=== PATIENT | female | born 1975 | race Caucasian/White ===

== ENCOUNTER 2019-11-26 10:44 | Emergency (ER) | payer OTHER, SELFPAY ==
[2019-11-26 10:55] VITALS: BP 122/80; PULSE 74; RESP 18; TEMP 36.8; O2SAT 95; BMI 41.5
--- NOTE | 2019-11-26 11:02 | XRR_ITS ---
PROCEDURE INFORMATION: Exam: XR Chest, 1 View Exam date and time: 11/26/2019 11:46 AM Age: 44 years old Clinical indication: Cough; Patient HX: Chest pain, high blood pressure this am; Additional info: Cough/congestion TECHNIQUE: Imaging protocol: XR of the chest Views: 1 view. COMPARISON: CR Chest 2 views* [id number] 02/19/2018 10:08 AM FINDINGS: Lungs: Unremarkable. No consolidation. Pleural space: Unremarkable. No pleural effusion. No pneumothorax. Heart/Mediastinum: Unremarkable. No cardiomegaly. Bones/joints: No acute findings. XR/XR chest 1V portable [id number] IMPRESSION: No acute findings.
--- NOTE | 2019-11-26 11:02 | ECG_ITS ---
Measurements Intervals [place] Rate: 76 P: 13 OH: 150 QRS: -2 QRSD: 77 T: 1 QT: 382 QTc: 430 SINUS RHYTHM MINIMAL VOLTAGE CRITERIA FOR LVH, CONSIDER NORMAL VARIANT [MEETS CRITERIA IN ONE OF: R(aVL), S(V1), R(V5), R(V5/V6)+S(V1)] Compared to ECG 02/19/2018 09:14:17 Short [place] interval no longer present Electronically Signed On 11-26-2019 20:54:40 FACILITIES DIRECTOR by Jenny Kirby M.D. [id number]
--- NOTE | 2019-11-26 11:07 | PC.NURSE ---
Patient reports that she has been having severe chest pain. Patient states this pain has been going on for about a month. Patient reports that it started when she started taking metoprolol. Patient states that the pain is constant but it comes and goes as well. Patient reports that the pain feels like needles. Patient states that the pain never goes away but it gets worse at times where she then gets short of breath and nauseous. Patient then reports that the pain radiates into her spine.
[2019-11-26 11:11] VITALS: BP 118/81; PULSE 72; RESP 19; O2SAT 95
--- NOTE | 2019-11-26 11:19 | ED_ITS ---
Entered by Niharika Rush, acting as scribe for Sudha Alfonso MD Nov 26, 2019 10:44 HPI - Chest Pain General: Chief Complaint: Chest Pain Stated Complaint: Chest pains Time Seen by Provider: 11/26/19 11:19 Source: patient Mode of arrival: ambulatory Limitations: no limitations History of Present Illness: HPI narrative: 44 yo Female presents to ED with complaint of chest pain. Pt states that she wasn't feeling well last night. Pt states that she feels like she has pins and needles or razor blades in her chest. Pt states that the last few nights she has been waking up with the feeling of someone is running a ball of needles up and down her spine. Pt states that she has pressure in her jaw. Pt's states that the patient had an episode where she had a syncopal episode. Pt's states that the patient was given an Alprazolam and took a nap. Pt states that during the episode she felt like her left side just couldn't hold up anymore and then she was in the floor. Pt's states that the patient started having another episode of the pins and needles feeling and checked her blood pressure at school and it was 167/102. Pt states that she had these episodes before and she started taking Metoprolol, which made the episodes better. Pt states that she is now having increased episodes. Pt states that she has been under a lot of stress recently too. Pt states that she was put on the Metoprolol to get her heart rate down because it was chronically up when she was on a monitor. Pt states that she is on Methyltrexate due to an autoimmune response and RA diagnosis from a tick bite. Pt states that she feels like she can't breathe deep enough all of the time but she has been having increased shortness of breath during these episodes. Pt states that she has also been having issues with her memory lately. Pt's states that the patient has been having a hard time getting her words out lately. complaint: chest pain and chest discomfort Onset (ago): week(s) Timing of current episode: episodic, increasing and still present Prior episodes: Yes Onset: during exertion and awoke with symptoms Pain location: right chest Pain radiation: back and jaw/teeth Severity: similar to previous episodes Pain scale (0-10): 4 Quality: heaviness and other (pins and needles) Relieving factors: nothing Exacerbating factors: exertion and stress Associated symptoms: Reports dyspnea and nausea; Deny abdominal pain, diaphoresis, fever(s) or vomiting Treatment prior to arrival: none Review of Systems Const: Denies: fever, chills, change in appetite, night sweats or diaphoresis Eyes: Denies: change in vision ENMT: Denies: throat pain or ear pain Card: Reports: chest pain (pins and needles feeling); Denies: swelling of feet/ankles, shortness of breath on exertion or shortness of breath when lying down Resp: Reports: shortness of breath; Denies: productive cough GI: Reports: nausea; Denies: abdominal pain, vomiting, diarrhea or constipation : Denies: flank pain or difficulty urinating Musc: Denies: back pain Skin/Breast: Denies: rash Neuro: Denies: headache, numbness in extremities or weakness in extremities Psych: Denies: depression Endo: Denies: excessive thirst Rian/Lymph: Denies: easy bruising PFSH ED PFSH: Statuses (acute, chronic, etc) shown below reflect problem list status as previously entered and may not be historically accurate Medical History (Updated 11/26/19 @ 14:44 by Sudha Alfonso MD) Anxiety Rheumatoid arthritis Stress reaction Surgical History (Updated 11/26/19 @ 12:21 by Niharika Rush) History of Social History Smoking and tobacco status: never smoked Female Reproductive History: Date of last menstrual period: 11/19/19 Physical Exam Const: COMMON NORMALS: no apparent distress, oriented x3 and alert GENERAL APPEARANCE: cooperative and well developed; not in distress and not diaphoretic ORIENTATION/CONSCIOUSNESS: Yes awake, Yes oriented to person, Yes oriented to place and Yes oriented to time HENMT: COMMON NORMALS: normocephalic, head/scalp atraumatic, external ears normal, external nose normal and moist oral mucous membranes HEAD & SCALP: normocephalic and atraumatic FACE & SINUS: normal facial exam; no facial tenderness NOSE: external nose normal EXTERNAL EAR: Yes external ears normal MOUTH: oral and palatal mucosa normal, lip normal and tongue normal TEETH & GINGIVA: no abnormal tooth and associated gingiva THROAT: posterior oropharynx normal and uvula midline Eye: COMMON NORMALS: PERRL and EOMs intact bilaterally PUPIL: Yes PERRL Neck/C-Spine: COMMON NORMALS: full ROM, supple and no JVD GENERAL: Yes normal visual inspection and Yes trachea midline CERVICAL SPINE: No cervical spine tenderness Lymph: LYMPHATIC: no lymphadenopathy noted Chest: COMMONS NORMALS: inspection of chest normal Resp: COMMON NORMALS: normal respiratory effort, no use of accessory muscles and clear to auscultation bilaterally EFFORT & INSPECTION: Yes able to speak in complete sentences and Yes symmetric chest movement AUSCULTATION: clear to auscultation bilaterally Cardio: COMMON NORMALS: no JVD, regular rate, regular rhythm, no gallops, no murmurs and peripheral pulses 2+ throughout RATE: regular rate RHYTHM: regular rhythm PERIPHERAL PULSES: pulses 2+ throughout GI: COMMON NORMALS: normal to inspection, nondistended, normoactive bowel sounds, soft to palpation and non-tender PALPATION: Yes soft Back/Pelvis: COMMON NORMALS: thoracic and lumbar spine normal to inspection and thoraco-lumbar ROM normal Extremity: COMMON NORMALS: normal to inspection, full ROM and normal capillary refill Neuro: COMMON NORMALS: oriented x3, CN's II-XII intact bilaterally, moves all extremities, no focal motor deficits and no sensory deficits noted SENSORIUM/ORIENTATION: Yes alert, Yes oriented to person, Yes oriented to place and Yes oriented to time Psych: COMMON NORMALS: mental status grossly normal, thought process normal, cooperative, affect normal, speech normal and activity/motor behavior normal SPEECH: Yes normal speech THOUGHT PROCESS: normal thought process Skin: COMMON NORMALS: no rashes or lesions noted and skin turgor normal GENERAL SKIN EXAM: no rashes or lesions noted and turgor normal Course Reevaluation(s): Reevaluation #1: Patient feeling better - so far labs and CT neg. Her prior work up for chest pain have not shown anything abnormal. Vital Signs: Vital signs: Vital Signs Temperature 98.3 F 11/26/19 10:55 Pulse Rate 73 11/26/19 15:04 Respiratory Rate 21 H 11/26/19 15:04 Blood Pressure 118/81 11/26/19 15:04 Pulse Oximetry 92 11/26/19 15:04 MDM - Chest Pain MDM Narrative: Medical decision making narrative: Patient with complaints of very atypical chest pain and back pain - intermittently for some time, but worse in the past two days. She reports a syncopal episode last night. Her work up in the ED including CT head, CT chest, labs, EKG, CXR - all neg. Her ESR, CRP were mildly elevated which is not unusual given her RA. I think there is an element of anxiety to the situation - as she reports that she had a stressful day yesterday prior to the syncope. Lab Data: Labs: Lab Results 11/26/19 11/26/19 11/26/19 Range/Units 11:50 11:50 11:50 WBC 7.2 (4.0-10.0) 10^3/ uL RBC 3.94 L (4.1-5.3) 10^6/u L Hgb 12.4 (11.5-15.3) g/dL Hct 37.7 (37.0-47.0) % MCV 95.7 (81-99) fL MCH 31.5 (28.0-34.0) pg MCHC 32.9 (30.0-36.0) g/dL RDW 14.5 (12.1-15.1) % Plt Count 270 (130-400) 10^3/c mm MPV 8.9 (7.4-10.4) fL Neut % (Auto) 57.9 % Lymph % (Auto) 33.2 % Taney % (Auto) 6.5 % Eos % (Auto) 1.7 % Baso % (Auto) 0.6 % Neut # (Auto) 4.2 (1.8-7.7) 10^3/u L Lymph # (Auto) 2.4 (0.8-4.8) 10^3/u L Taney # (Auto) 0.5 (0.2-0.9) 10^3/u L Eos # (Auto) 0.1 (0.0-0.8) 10^3/u L Baso # (Auto) 0.0 (0.0-0.1) 10^3/u L Nucleated RBC % (a uto) 0 % Nucleated RBCs # 0.0 /100WBC ESR (0-15) mm/hr Sodium 138 (136-145) mmol/L Potassium 4.1 (3.5-5.1) mmol/L Chloride 103 (98-107) mmol/L Carbon Dioxide 23 (22-29) mmol/L Anion Gap 16.1 (5-19) BUN 13 (6-20) mg/dL Creatinine 0.7 (0.5-0.9) mg/dL GFR Calculation 91.3 (90-130) mL/min Glucose 86 (65-115) mg/dL Calcium 9.8 (8.5-10.5) mg/dL Total Bilirubin 0.4 (0.15-1.2) mg/dL AST 19 (0-32) U/L ALT 21 (0-33) U/L Alkaline Phosphata se 82 (35-105) IU/L Troponin T Baselin e 11 H (0-10) ng/mL Troponin T 120 Min burns paiute (0-10) ng/mL Delta Troponin T (0-10) ABS# C-Reactive Protein (0.0-4.9) mg/L Total Protein 7.0 (6.6-8.7) g/dL Albumin 4.7 (3.5-5.2) g/dL Globulin 2.3 (1.3-4.6) g/dL HCG, Qual (Negative) Urine Color (Yellow) Urine Appearance (CLEAR) Urine pH (5-7) Ur Specific Gravit y (1.005-1.030) Urine Protein (Negative) Urine Glucose (UA) (Normal) Urine Ketones (Negative) Urine Occult Blood (Negative) Urine Nitrate (Negative) Urine Bilirubin (NEGATIVE) Urine Urobilinogen (Negative) mg/dL Ur Leukocyte Christin ase (Negative) 11/26/19 11/26/19 11/26/19 Range/Units 11:50 11:50 11:50 WBC (4.0-10.0) 10^3/ uL RBC (4.1-5.3) 10^6/u L Hgb (11.5-15.3) g/dL Hct (37.0-47.0) % MCV (81-99) fL MCH (28.0-34.0) pg MCHC (30.0-36.0) g/dL RDW (12.1-15.1) % Plt Count (130-400) 10^3/c mm MPV (7.4-10.4) fL Neut % (Auto) % Lymph % (Auto) % Taney % (Auto) % Eos % (Auto) % Baso % (Auto) % Neut # (Auto) (1.8-7.7) 10^3/u L Lymph # (Auto) (0.8-4.8) 10^3/u L Taney # (Auto) (0.2-0.9) 10^3/u L Eos # (Auto) (0.0-0.8) 10^3/u L Baso # (Auto) (0.0-0.1) 10^3/u L Nucleated RBC % (a uto) % Nucleated RBCs # /100WBC ESR 19 H (0-15) mm/hr Sodium (136-145) mmol/L Potassium (3.5-5.1) mmol/L Chloride (98-107) mmol/L Carbon Dioxide (22-29) mmol/L Anion Gap (5-19) BUN (6-20) mg/dL Creatinine (0.5-0.9) mg/dL GFR Calculation (90-130) mL/min Glucose (65-115) mg/dL Calcium (8.5-10.5) mg/dL Total Bilirubin (0.15-1.2) mg/dL AST (0-32) U/L ALT (0-33) U/L Alkaline Phosphata se (35-105) IU/L Troponin T Baselin e (0-10) ng/mL Troponin T 120 Min burns paiute (0-10) ng/mL Delta Troponin T (0-10) ABS# C-Reactive Protein 7.1 H (0.0-4.9) mg/L Total Protein (6.6-8.7) g/dL Albumin (3.5-5.2) g/dL Globulin (1.3-4.6) g/dL HCG, Qual Negative (Negative) Urine Color (Yellow) Urine Appearance (CLEAR) Urine pH (5-7) Ur Specific Gravit y (1.005-1.030) Urine Protein (Negative) Urine Glucose (UA) (Normal) Urine Ketones (Negative) Urine Occult Blood (Negative) Urine Nitrate (Negative) Urine Bilirubin (NEGATIVE) Urine Urobilinogen (Negative) mg/dL Ur Leukocyte Christin ase (Negative) 02/12/20 02/12/20 Range/Units 14:02 14:22 WBC (4.0-10.0) 10^3/ uL RBC (4.1-5.3) 10^6/u L Hgb (11.5-15.3) g/dL Hct (37.0-47.0) % MCV (81-99) fL MCH (28.0-34.0) pg MCHC (30.0-36.0) g/dL RDW (12.1-15.1) % Plt Count (130-400) 10^3/c mm MPV (7.4-10.4) fL Neut % (Auto) % Lymph % (Auto) % Taney % (Auto) % Eos % (Auto) % Baso % (Auto) % Neut # (Auto) (1.8-7.7) 10^3/u L Lymph # (Auto) (0.8-4.8) 10^3/u L Taney # (Auto) (0.2-0.9) 10^3/u L Eos # (Auto) (0.0-0.8) 10^3/u L Baso # (Auto) (0.0-0.1) 10^3/u L Nucleated RBC % (a uto) % Nucleated RBCs # /100WBC ESR (0-15) mm/hr Sodium (136-145) mmol/L Potassium (3.5-5.1) mmol/L Chloride (98-107) mmol/L Carbon Dioxide (22-29) mmol/L Anion Gap (5-19) BUN (6-20) mg/dL Creatinine (0.5-0.9) mg/dL GFR Calculation (90-130) mL/min Glucose (65-115) mg/dL Calcium (8.5-10.5) mg/dL Total Bilirubin (0.15-1.2) mg/dL AST (0-32) U/L ALT (0-33) U/L Alkaline Phosphata se (35-105) IU/L Troponin T Baselin e (0-10) ng/mL Troponin T 120 Min burns paiute 11.26 H (0-10) ng/mL Delta Troponin T 0.26 (0-10) ABS# C-Reactive Protein (0.0-4.9) mg/L Total Protein (6.6-8.7) g/dL Albumin (3.5-5.2) g/dL Globulin (1.3-4.6) g/dL HCG, Qual (Negative) Urine Color Yellow (Yellow) Urine Appearance Clear (CLEAR) Urine pH 5 (5-7) Ur Specific Gravit y 1.010 (1.005-1.030) Urine Protein Neg (Negative) Urine Glucose (UA) Norm (Normal) Urine Ketones Negative (Negative) Urine Occult Blood Neg (Negative) Urine Nitrate Negative (Negative) Urine Bilirubin Neg (NEGATIVE) Urine Urobilinogen Norm (Negative) mg/dL Ur Leukocyte Christin ase Negative (Negative) Imaging Data^: CT Head: Radiologist's impression: [place] [address] CT Scan Report Signed Patient: Estefani Sherman #: [id number] : 1975Acct#:[id number] Age/Sex: 44 / FADM Date: 11/26/19 Loc: ERRoom/Bed: Attending Dr: Ordering Provider/Ordering MD: Sudha Alfonso MD Date of Service: 11/26/19 Procedure(s): CT head wo con* [id number] Accession Number(s): [id number] Report Number: [id number] WS: [id number] CT HEAD NONCONTRAST HISTORY: syncope, left sided weakness TECHNIQUE: Contiguous axial imaging performed through the brain in 2.5 mm camelia ging. Bone and soft tissue windows. Sagittal and coronal reformats reviewed. All CT scans at [facility] use at least one of these dose optimization techniques: automated exposure control; mA and/or kV adjustment per patient size (includes targeted exams where dose is matched to clinical indication); or iterative reconstruction. DLP: 800.48 mGy-cm. COMPARISON: None available. No acute intracranial hemorrhage, midline shift or mass effect. No atrophy or prior infarcts or herniation. Ventricles: Normal size with no hydrocephalus. Paranasal sinuses: As visualized are clear. Mastoid air cells: Well pneumatized. Calvarium and scalp: Skull is intact with no soft tissue edema or swelling. CT/CT head wo con* [id number] IMPRESSION: Negative head CT. Dictated By:Brandi Diop DO Signed By:Brandi Diop DOSigned Date/Time:11/26/19 1239 DD/ 1238 CXR: Radiologist's impression: [address] [address] XRay Report Signed Patient: Estefani Sherman #: [id number] : 1975Acct#:[id number] Age/Sex: 44 / FADM Date: 11/26/19 Loc: ERRoom/Bed: Attending Dr: Ordering Provider/Ordering MD: Maye Abebe Date of Service: 11/26/19 Procedure(s): XR chest 1V portable [id number] Accession Number(s): [id number] Report Number: [id number] PROCEDURE INFORMATION: Exam: XR Chest, 1 View Exam date and time: 11/26/2019 11:46 AM Age: 44 years old Clinical indication: Cough; Patient HX: Chest pain, high blood pressure this am; Additional info: Cough/congestion TECHNIQUE: Imaging protocol: XR of the chest Views: 1 view. COMPARISON: CR Chest 2 views* [id number] 02/19/2018 10:08 AM FINDINGS: Lungs: Unremarkable. No consolidation. Pleural space: Unremarkable. No pleural effusion. No pneumothorax. Heart/Mediastinum: Unremarkable. No cardiomegaly. Bones/joints: No acute findings. XR/XR chest 1V portable [id number] IMPRESSION: No acute findings. Dictated By:Woody Allen MD Signed By:Woody Allen MDSigned Date/Time:11/26/19 1252 DD/ 1250 CTA Chest: Radiologist's impression: [address] [address] [address] Scan Report Signed Patient: Estefani Sherman #: [id number] : 1975Acct#:[id number] Age/Sex: 44 / FADM Date: 11/26/19 Loc: ERRoom/Bed: Attending Dr: Ordering Provider/Ordering MD: Sudha Alfonso MD Date of Service: 11/26/19 Procedure(s): CT angio chest PE protcl [id number] Accession Number(s): [id number] Report Number: [id number] WS: [id number] CT CHEST ANGIOGRAPHY WITH REFORMATS HISTORY: syncope, SOB TECHNIQUE: Contiguous axial images are obtained through the chest during arterial injection of intravenous contrast. Images are reconstructed to evaluate the pulmonary arteries. MIP imaging also reviewed. All CT scans at [facility] use at least one of these dose optimization techniques: automated exposure control; mA and/or kV adjustment per patient size (includes targeted exams where dose is matched to clinical indication); or iterative reconstruction. CONTRAST: Omnipaque 350; 95 mL IV. DLP: 577.57 mGy-cm. COMPARISON: 02/19/2018 Adequate opacification of the pulmonary arteries. There is some artifact through the chest but no pulmonary embolism is identified. Normal size pulmonary artery. Thoracic aorta is normal size. No pericardial or pleural effusion. Area of groundglass attenuation in the RIGHT middle lobe corresponds to an area of atelectasis. Platelike atelectasis at the lingula. No mass or pneumonia. No mediastinal or hilar adenopathy. Small hiatal hernia. No abnormality in the upper abdomen. Mild increase in thoracic kyphosis. No osteoblastic or osteolytic bone disease. CT/CT angio chest PE protcl [id number] IMPRESSION: 1. No pulmonary embolism. 2. Subsegmental atelectasis in the RIGHT middle lobe and lingula. 3. No pneumonia. 4. Small hiatal hernia. Dictated By:Brandi Diop DO Signed By:Brandi Diop DOSigned Date/Time:11/26/19 1257 DD/ 1252 Discharge Plan Discharge Patient Disposition: Home, Self-Care Clinical Impression: Atypical chest pain, Syncope Condition: Stable Prescriptions: No Action sulfasalazine 500 mg tablet,delayed release (DR/EC) 500 mg PO BID RF: 0 Tylenol Arthritis Pain 650 mg Tablet Extended Release 650 - 1,300 mg PO Q8H PRN (Reason: Pain) RF: 0 alprazolam 0.25 mg tablet 0.25 mg PO PRN RF: 0 methotrexate sodium 2.5 mg tablet See Rx Instructions .ROUTE .COMPLEX RF: 0 metoprolol tartrate 50 mg tablet 50 mg PO BID RF: 0 folic acid 1 mg tablet 2 mg PO DAILY RF: 0 duloxetine 30 mg capsule,delayed release(DR/EC) 60 mg PO BID RF: 0 + DHA 28 mg iron- 975 mcg-200 mg Combo Pack 1 pkg PO DAILY RF: 0 Vit B Er 1 tab PO DAILY RF: 0 Discharge Orders: Discharge Order (Routine); Ordered 11/26/19 Ordered By: Sudha Alfonso Referrals: Ras Vizcarra, DO [Primary Care Provider] - 4-7 days Discharge Activity: Resume usual activity Patient Instructions: Chest Pain (ED), Syncope (ED) Activity Restrictions/Additional Instructions: Follow up with Dr. Arzola for further evaluation and management of your symptoms. Your testing did not reveal any concerning cause today. Make sure to rest and drink plenty of fluids. Return if new or worse symptoms occur. Stand Alone Forms: Work/School Release Discharge Date/Time: 11/26/19 15:14 Coding Level of Care Code ED Assistant Office Manager for Chg Fwd Exam Problem Focused The documentation recorded by the Adri crouch Carmen, accurately reflects the service I personally performed and the decisions made by , Sudha Alfonso MD Nov 26, 2019 10:44
[2019-11-26 11:57] LABS: Basophils % 0.6 %; Eosinophils # 0.1 10^3/uL (0.0-0.8); Eosinophils % 1.7 %; Hematocrit 37.7 % (37.0-47.0); Hemoglobin 12.4 g/dL (11.5-15.3); Lymphocytes # 2.4 10^3/uL (0.8-4.8); Lymphocytes % 33.2 %; Mean Corpuscular HGB Conc 32.9 g/dL (30.0-36.0); Mean Corpuscular Hemoglobin 31.5 pg (28.0-34.0); Mean Corpuscular Volume 95.7 fL (81-99); Mean Platelet Volume 8.9 fL (7.4-10.4); Monocytes # 0.5 10^3/uL (0.2-0.9); Monocytes % 6.5 %; Neutrophils # 4.2 10^3/uL (1.8-7.7); Neutrophils % 57.9 %; Nucleated Red Blood Cells % 0 %; Platelet Count 270 10^3/cmm (130-400); Red Blood Count 3.94 10^6/uL (4.1-5.3); Red Cell Distribution Width 14.5 % (12.1-15.1); White Blood Count 7.2 10^3/uL (4.0-10.0)
[2019-11-26 12:07] LABS: HCG, Serum Qual Negative (Negative)
[2019-11-26 12:19] LABS: Alanine Aminotransferase 21 U/L (0-33); Albumin Level 4.7 g/dL (3.5-5.2); Alkaline Phosphatase 82 IU/L (35-105); Anion Gap 16.1 (5-19); Aspartate Amino Transferase 19 U/L (0-32); Blood Urea Nitrogen 13 mg/dL (6-20); Calcium 9.8 mg/dL (8.5-10.5); Carbon Dioxide 23 mmol/L (22-29); Chloride 103 mmol/L (98-107); Creatinine Clr Calc Pharmacy 139.1193; Globulin 2.3 g/dL (1.3-4.6); Glomerular Filtration Rate 91.3 mL/min (90-130); Glucose 86 mg/dL (65-115); Potassium 4.1 mmol/L (3.5-5.1); Sodium 138 mmol/L (136-145); Total Bilirubin 0.4 mg/dL (0.15-1.2)
[2019-11-26 12:20] LABS: Troponin(5th) Baseline 11 ng/mL (0-10)
--- NOTE | 2019-11-26 12:20 | CT_ITS ---
WS: [id number] CT CHEST ANGIOGRAPHY WITH REFORMATS HISTORY: syncope, SOB TECHNIQUE: Contiguous axial images are obtained through the chest during arterial injection of intrav enous contrast. Images are reconstructed to evaluate the pulmonary arteries. MIP imaging also reviewe d. All CT scans at [facility] use at least one of these dose optimization techniques: aut omated exposure control; mA and/or kV adjustment per patient size (includes targeted exams where dose is matched to clinical indication); or iterative reconstruction. CONTRAST: Omnipaque 350; 95 mL IV. DLP: 577.57 mGy-cm. COMPARISON: 02/19/2018 Adequate opacification of the pulmonary arteries. There is some artifact through the chest but no pul monary embolism is identified. Normal size pulmonary artery. Thoracic aorta is normal size. No perica rdial or pleural effusion. Area of groundglass attenuation in the RIGHT middle lobe corresponds to an area of atelectasis. Platelike atelectasis at the lingula. No mass or pneumonia. No mediastinal or h ilar adenopathy. Small hiatal hernia. No abnormality in the upper abdomen. Mild increase in thoracic kyphosis. No osteoblastic or osteolytic bone disease. CT/CT angio chest PE protcl [id number] IMPRESSION: 1. No pulmonary embolism. 2. Subsegmental atelectasis in the RIGHT middle lobe and lingula. 3. No pneumonia. 4. Small hiatal hernia.
--- NOTE | 2019-11-26 12:20 | CT_ITS ---
WS: [id number] CT HEAD NONCONTRAST HISTORY: syncope, left sided weakness TECHNIQUE: Contiguous axial imaging performed through the brain in 2.5 mm imaging. Bone and soft tiss ue windows. Sagittal and coronal reformats reviewed. All CT scans at [facility] use at le ast one of these dose optimization techniques: automated exposure control; mA and/or kV adjustment pe r patient size (includes targeted exams where dose is matched to clinical indication); or iterative r econstruction. DLP: 800.48 mGy-cm. COMPARISON: None available. No acute intracranial hemorrhage, midline shift or mass effect. No atrophy or prior infarcts or herniation. Ventricles: Normal size with no hydrocephalus. Paranasal sinuses: As visualized are clear. Mastoid air cells: Well pneumatized. Calvarium and scalp: Skull is intact with no soft tissue edema or swelling. CT/CT head wo con* [id number] IMPRESSION: Negative head CT.
--- NOTE | 2019-11-26 13:02 | ECG_ITS ---
Measurements Intervals [place] Rate: 69 P: 31 DE: 151 QRS: 13 QRSD: 85 T: 9 QT: 421 QTc: 451 SINUS RHYTHM Compared to ECG 02/19/2018 09:14:17 Short [place] interval no longer present Electronically Signed On 11-26-2019 21:00:38 ORDER MAKE UP CLERK by Jenny Kirby M.D. [email or web address]
[2019-11-26 13:12] LABS: C Reactive Protein 7.1 mg/L (0.0-4.9)
[2019-11-26 13:45] LABS: Erythrocyte Sedimentation Rate 19 mm/hr (0-15)
[2019-11-26 14:28] LABS: Troponin 5 2HR 11.26 ng/mL (0-10); Troponin 5 2HR Delta 0.26 ABS# (0-10)
[2019-11-26 14:38] LABS: Add Urine Microscopic? NO
[2019-11-26 14:59] LABS: Bilirubin Urine Neg (NEGATIVE); Blood Urine Neg (Negative); Glucose Urine UA Norm (Normal); Ketones Urine Negative (Negative); Leukocyte Esterase Urine Negative (Negative); Nitrate Urine Negative (Negative); Protein Urine Neg (Negative); Urine Appearance Clear (CLEAR); Urine Color Yellow (Yellow); Urobilinogen Urine Norm (Negative); pH Urine 5 (5-7)
[2019-11-26 15:04] VITALS: BP 118/81; PULSE 73; RESP 21; O2SAT 92
== END 2019-11-26 15:14 | disposition home or self-care (01) ==
PROVIDERS: Physician Assistant; Emergency Provider Emergency Medicine; Family Provider Family Medicine; PCP Family Medicine
DX: R07.89 Other chest pain (principal); R55 Syncope and collapse
CPT/HCPCS: 36415; 70450; 71045; 71275; 80053; 81003; 84484; 84703; 85025; 85651; 86140; 93005; 99283; 99284; A9270; Q9967

== ENCOUNTER 2020-03-24 13:53 | Emergency (ER) | payer OTHER, SELFPAY ==
[2020-03-24 14:01] VITALS: BP 150/97; PULSE 102; RESP 18; TEMP 36.6; O2SAT 99; BMI 43.0
--- NOTE | 2020-03-24 14:44 | W.ED.HA ---
HPI - Headache General: Chief Complaint: Headache Stated Complaint: headache Time Seen by Provider: 03/24/20 14:14 Source: patient and family Mode of arrival: ambulatory Limitations: no limitations History of Present Illness: HPI Narrative: Patient is a 44-year-old female who presents to ED today along with her for complaints of left sided neck and headache. Patient tells me in the middle of the night she began having extremely sharp left sided pain that seem to be inside her ear . She tells me she then felt a sensation down the left side of her neck. She reports by morning she had developed a constant pain to the top of her scalp. She states again pain is constant but has extremely debilitating exacerbations. She has not noticed any hearing loss or tinnitus. No visual changes. No facial drooping or changes in facial sensation. No slurred speech. She does have a history of migraine headaches/cluster headaches however has not experienced one in several years and reports that her symptoms today did not feel characteristic of these. Patient does have a history of rheumatoid arthritis, HTN, and anxiety. MD elicited complaint: headache Location: left, neck, down into neck and band-like Severity: severe Pain scale (0-10): 10 Exacerbating factors: none Relieving factors: nothing Associated symptoms: Deny chest pain, fever(s), lightheadedness, malaise, nausea, rash, syncope or vomiting Review of Systems Const: Denies: fever(s), chills, body aches, change in appetite, change in weight, fatigue or malaise Eyes: Denies: change in vision, blurry vision, photophobia, floaters or seeing flashes ENMT: Reports: ear or mastoid pain; Denies: throat pain, enlarged tonsils, odynophagia, mouth pain, oral sores, dental pain, ear discharge, tinnitus, nasal discharge, nasal congestion or sinus pain Card: Denies: chest pain, palpitations, irregular heart rhythm, lightheadedness, syncope or dyspnea on exertion Resp: Denies: dyspnea, productive cough or pain on inspiration GI: Denies: abdominal pain, nausea, vomiting, heartburn or diarrhea : Denies: flank pain, difficulty voiding, dysuria, urinary frequency or urinary urgency Musc: Denies: neck pain, back pain, extremity pain, extremity swelling or joint pain Skin/Breast: Denies: rash, skin pain, new lesions or changes in skin color Neuro: Reports: headache(s); Denies: numbness in extremities, weakness in extremities, sensory changes or dizziness PFSH ED PFSH: Medical History (Updated 03/24/20 @ 16:46 by SHIRA Avalos) Anxiety Rheumatoid arthritis Stress reaction Surgical History (Updated 11/26/19 @ 12:21 by Niharika Rush) History of Social History Smoking and tobacco status: never smoked Female Reproductive History: Date of last menstrual period: 02/27/20 Physical Exam Const: COMMON NORMALS: average body habitus, patient oriented x3, no limitations, healthy appearing, alert and well nourished GENERAL APPEARANCE: cooperative and in distress (patient in pain) ORIENTATION/CONSCIOUSNESS: Yes oriented to person, Yes oriented to place and Yes oriented to time HENMT: COMMON NORMALS: normocephalic, atraumatic, hearing grossly normal bilaterally, external ears normal, EAC's normal, TM's normal bilaterally, Normal external nose present, Normal nasal mucous membranes and turbinates present, moist oral mucous membranes, oropharynx normal, dentition normal and gingiva normal HEAD & SCALP: normal to inspection, normocephalic and atraumatic FACE & SINUS: normal facial exam and sinuses nontender NOSE: Normal external nose present and Normal nasal mucous membranes and turbinates present EXTERNAL EAR: Yes external ears normal EXTERNAL AUDITORY CANAL: EAC's normal TYMPANIC MEMBRANE: TM's normal bilaterally THROAT: posterior oropharynx normal, tonsils normal and uvula midline Eye: COMMON NORMALS: Equal, round and reactive pupils present, EOMs intact bilaterally, conjunctivae normal and no scleral icterus GENERAL EYE: appearance normal, both eyes and all related structures ALIGNMENT: Yes alignment normal PERIORBITAL: periorbital findings normal EYELID: eyelids normal CONJUNCTIVA: Yes conjunctivae normal PUPIL: Yes Equal, round and reactive pupils present Neck/C-Spine: COMMON NORMALS: full ROM, no lymphadenopathy and no meningeal signs OTHER: pt reporting tenderness throughout L side of neck and L posterior auricular region; reports pain also to L side of scalp Resp: COMMON NORMALS: normal respiratory effort and clear to auscultation bilaterally AUSCULTATION: clear to auscultation bilaterally Cardio: COMMON NORMALS: regular rate and regular rhythm RATE: regular rate RHYTHM: regular rhythm Extremity: COMMON NORMALS: normal to inspection Neuro: MARLEN COMA SCALE: document GCS findings Sterling coma scale eye opening: Spontaneous [place] coma scale verbal response: Orientated [place] coma scale motor response: Obey commands Sterling coma scale total score: 15 COMMON NORMALS: patient oriented x3, CN's II-XII intact bilaterally, moves all extremities, no focal motor deficits, no sensory deficits noted and gait normal SENSORIUM/ORIENTATION: Yes alert, Yes oriented to person, Yes oriented to place and Yes oriented to time MENINGEAL SIGNS: Yes no meningeal signs CRANIAL NERVES: Yes CN normal except as noted SPEECH: speech normal GAIT: Yes Normal gait present Skin: COMMON NORMALS: no rashes or lesions noted GENERAL SKIN EXAM: no rashes or lesions noted Course Vital Signs: Vital signs: Vital Signs Temperature 97.8 F 03/24/20 14:01 Pulse Rate 87 03/24/20 15:54 Respiratory Rate 18 03/24/20 14:01 Blood Pressure 137/93 03/24/20 15:54 Pulse Oximetry 99 03/24/20 15:54 MDM - Headache MDM Narrative: Medical decision making narrative: Patient reports feeling much better following medications given here. She feels comfortable going home. I had spoken to radiologist before ordering CTA imaging as I also wanted to evaluate posterior auricular and soft tissues of the left side of her neck. I spoke to Dr. Diop following the images who again reviewed thoroughly and did not see any abnormalities to the brain, vascular structures, or soft tissues. Recommend she follow-up with her PCP Dr. Arzola for further follow-up. Return to ED precautions given for worsening pain. Differential diagnosis includes migraine variant headache, cluster headache, neuralgia. Lab Data: Labs: Lab Results 03/24/20 03/24/20 Range/Units 15:06 15:06 WBC 7.9 (4.0-10.0) 10^3/ uL RBC 4.24 (4.1-5.3) 10^6/u L Hgb 13.5 (11.5-15.3) g/dL Hct 41.6 (37.0-47.0) % MCV 98.1 (81-99) fL MCH 31.8 (28.0-34.0) pg MCHC 32.5 (30.0-36.0) g/dL RDW 14.0 (12.1-15.1) % Plt Count 259 (130-400) 10^3/c mm MPV 9.1 (7.4-10.4) fL Neut % (Auto) 58.2 % Lymph % (Auto) 31.6 % King % (Auto) 8.2 % Eos % (Auto) 1.3 % Baso % (Auto) 0.6 % Neut # (Auto) 4.6 (1.8-7.7) 10^3/u L Lymph # (Auto) 2.5 (0.8-4.8) 10^3/u L King # (Auto) 0.7 (0.2-0.9) 10^3/u L Eos # (Auto) 0.1 (0.0-0.8) 10^3/u L Baso # (Auto) 0.1 (0.0-0.1) 10^3/u L Nucleated RBC % (a uto) 0 % Nucleated RBCs # 0.0 /100WBC Sodium 138 (136-145) mmol/L Potassium 3.9 (3.5-5.1) mmol/L Chloride 102 (98-107) mmol/L Carbon Dioxide 22 (22-29) mmol/L Anion Gap 17.9 (5-19) BUN 8 (6-20) mg/dL Creatinine 0.6 (0.5-0.9) mg/dL GFR Calculation 109.1 (90-130) mL/min Glucose 95 (65-115) mg/dL Calculated Osmolal ity 282 L (285-295) mOsm/k g Calcium 9.8 (8.5-10.5) mg/dL Total Bilirubin 0.4 (0.15-1.2) mg/dL AST 20 (0-32) U/L ALT 25 (0-33) U/L Alkaline Phosphata se 85 (35-105) IU/L Total Protein 7.4 (6.6-8.7) g/dL Albumin 4.3 (3.5-5.2) g/dL Globulin 3.1 (1.3-4.6) g/dL Imaging Data^: CTA head/neck: Radiologist's impression: [address] [address] [address] Scan Report Signed Patient: Estefani Sherman [id number] : 1975 [id number] Age/Sex: 44 / F ADM Date: 03/24/20 Loc: ER Room/Bed: Attending Dr: Ordering Provider/Ordering MD: Maye Abebe Date of Service: 03/24/20 Procedure(s): CT angio rosa elena* [id number] Accession Number(s): [id number] Report Number: [id number] WS: [id number] CT ANGIOGRAM CEREBRAL AND CAROTID ARTERIES HISTORY: severe L RENDON/neck pain TECHNIQUE: CT angiogram is performed of the carotid and cerebral arteries. During arterial injection imaging is obtained from the skull vertex to the aortic arch in 1.25 mm imaging. Coronal a nd sagittal reformats are submitted. Additional multi planar reformats of the carotid and cerebral arteries are submitted, MIP imaging also reviewed. NASCET criteria utilized. All CT scans at [facility] use at least one of these dose optimization techniques: automated exposure control; mA and/or kV adjustment per patient size (includes targeted exams where dose is matched to clinical indication); or iterative reconstruction. CONTRAST: Omnipaque 350; 95 mL IV. DLP: 3409.7 mGy.cm COMPARISON: 11/26/[address] head is negative for intracranial hemorrhage or edema. No midline shift. Ventricles are normal. Carotid Angiogram: Right carotid: Common carotid artery: Arises normally from the innominate artery. No significant plaque or stenosis. Internal carotid artery: No plaque or stenosis. External carotid artery: Patent. Left carotid: Common carotid artery: Arises normally from the innominate. No significant plaque or stenosis. Internal carotid artery: No plaque or stenosis. External carotid artery: Patent. Right vertebral artery: Unremarkable. Left vertebral artery: Unremarkable. Arises normally from the subclavian artery. Subclavian arteries: No stenosis or significant abnormality. Small bilateral cervical chain lymph nodes. Upper thorax: Normal. Thyroid gland: Normal. Osseous structures: Unremarkable. CEREBRAL ANGIOGRAM: Intracranial vertebral arteries: Normal with no significant atherosclerosis. Basilar artery: No significant stenosis or occlusion. No aneurysm. Intracranial Internal carotid arteries: Demonstrates no significant stenosis or plaque. Middle cerebral arteries: Normal. Anterior cerebral arteries and ACOM: Normal. Posterior cerebral arteries and PCOM's: Normal. Dural venous sinuses are normally enhancing. Mastoid air cells: Normal. Paranasal sinuses: Normal. Calvarium: Normal. CT/CT angio headneck* [id number] IMPRESSION: 1. Normal carotid arteries. 2. Unremarkable [place]. 3. No soft tissue masses. Dictated By: Brandi Diop DO Signed By: Brandi Diop DO Signed Date/Time: 03/24/20 1546 DD/ Discharge Plan Discharge Patient Disposition: Home, Self-Care Clinical Impression: Headache Qualifiers: Headache type: unspecified Headache chronicity pattern: acute headache Intractability: not intractable Qualified Code(s): R51 - Headache Condition: Stable Prescriptions: New sumatriptan succinate 50 mg tablet See Rx Instructions .ROUTE .COMPLEX Qty: 7 RF: 0 No Action sulfasalazine 500 mg tablet,delayed release (DR/EC) 500 mg PO BID RF: 0 Tylenol Arthritis Pain 650 mg Tablet Extended Release 650 - 1,300 mg PO Q8H PRN (Reason: Pain) RF: 0 alprazolam 0.25 mg tablet 0.25 mg PO PRN RF: 0 methotrexate sodium 2.5 mg tablet See Rx Instructions .ROUTE .COMPLEX RF: 0 metoprolol tartrate 50 mg tablet 50 mg PO BID RF: 0 folic acid 1 mg tablet 2 mg PO DAILY RF: 0 duloxetine 30 mg capsule,delayed release(DR/EC) 60 mg PO BID RF: 0 + DHA 28 mg iron- 975 mcg-200 mg Combo Pack 1 pkg PO DAILY RF: 0 Vit B Er 1 tab PO DAILY RF: 0 Discharge Orders: Discharge Order (Routine); Ordered 03/24/20 Ordered By: Maye Abebe Referrals: Ras Vizcarra DO [Primary Care Provider] - Coding Level of Care Code ED Integrated Specialist for Chg Fwd Exam Comprehensive
--- NOTE | 2020-03-24 14:51 | CT_ITS ---
WS: [id number] CT ANGIOGRAM CEREBRAL AND CAROTID ARTERIES HISTORY: severe L RENDON/neck pain TECHNIQUE: CT angiogram is performed of the carotid and cerebral arteries. During arterial injection imaging is obtained from the skull vertex to the aortic arch in 1.25 mm imaging. Coronal and sagittal reformats are submitted. Additional multi planar reformats of the carotid and cerebral arteries are submitted, MIP imaging also reviewed. NASCET criteria utilized. All CT scans at [facility] use at least one of these dose optimization techniques: automated exposure control; mA and/or kV ad justment per patient size (includes targeted exams where dose is matched to clinical indication); or iterative reconstruction. CONTRAST: Omnipaque 350; 95 mL IV. DLP: 3409.7 mGy.cm COMPARISON: 11/26/[address] head is negative for intracranial hemorrhage or edema. No midline shift. Ventricles ar e normal. Carotid Angiogram: Right carotid: Common carotid artery: Arises normally from the innominate artery. No significant plaque or stenosis. Internal carotid artery: No plaque or stenosis. External carotid artery: Patent. Left carotid: Common carotid artery: Arises normally from the innominate. No significant plaque or stenosis. Internal carotid artery: No plaque or stenosis. External carotid artery: Patent. Right vertebral artery: Unremarkable. Left vertebral artery: Unremarkable. Arises normally from the subclavian artery. Subclavian arteries: No stenosis or significant abnormality. Small bilateral cervical chain lymph nodes. Upper thorax: Normal. Thyroid gland: Normal. Osseous structures: Unremarkable. CEREBRAL ANGIOGRAM: Intracranial vertebral arteries: Normal with no significant atherosclerosis. Basilar artery: No significant stenosis or occlusion. No aneurysm. Intracranial Internal carotid arteries: Demonstrates no significant stenosis or plaque. Middle cerebral arteries: Normal. Anterior cerebral arteries and ACOM: Normal. Posterior cerebral arteries and PCOM's: Normal. Dural venous sinuses are normally enhancing. Mastoid air cells: Normal. Paranasal sinuses: Normal. Calvarium: Normal. CT/CT angio headneck* [id number] IMPRESSION: 1. Normal carotid arteries. 2. Unremarkable [place]. 3. No soft tissue masses.
[2020-03-24] MEDS: morphine 4 mg/mL SDV 1 mL IVP (15:08)
[2020-03-24] MEDS: ondansetron 2 mg/ML SDV 2 mL 4 MG IVP (15:09)
[2020-03-24 15:13] LABS: Basophils # 0.1 10^3/uL (0.0-0.1); Basophils % 0.6 %; Eosinophils # 0.1 10^3/uL (0.0-0.8); Eosinophils % 1.3 %; Hematocrit 41.6 % (37.0-47.0); Hemoglobin 13.5 g/dL (11.5-15.3); Lymphocytes # 2.5 10^3/uL (0.8-4.8); Lymphocytes % 31.6 %; Mean Corpuscular HGB Conc 32.5 g/dL (30.0-36.0); Mean Corpuscular Hemoglobin 31.8 pg (28.0-34.0); Mean Corpuscular Volume 98.1 fL (81-99); Mean Platelet Volume 9.1 fL (7.4-10.4); Monocytes # 0.7 10^3/uL (0.2-0.9); Monocytes % 8.2 %; Neutrophils # 4.6 10^3/uL (1.8-7.7); Neutrophils % 58.2 %; Nucleated Red Blood Cells % 0 %; Platelet Count 259 10^3/cmm (130-400); Red Blood Count 4.24 10^6/uL (4.1-5.3); White Blood Count 7.9 10^3/uL (4.0-10.0)
[2020-03-24 15:27] LABS: Alanine Aminotransferase 25 U/L (0-33); Albumin Level 4.3 g/dL (3.5-5.2); Alkaline Phosphatase 85 IU/L (35-105); Anion Gap 17.9 (5-19); Aspartate Amino Transferase 20 U/L (0-32); Blood Urea Nitrogen 8 mg/dL (6-20); Calcium 9.8 mg/dL (8.5-10.5); Carbon Dioxide 22 mmol/L (22-29); Chloride 102 mmol/L (98-107); Globulin 3.1 g/dL (1.3-4.6); Glomerular Filtration Rate 109.1 mL/min (90-130); Glucose 95 mg/dL (65-115); Osmolality Calculated 282 mOsm/kg (285-295); Potassium 3.9 mmol/L (3.5-5.1); Sodium 138 mmol/L (136-145); Total Bilirubin 0.4 mg/dL (0.15-1.2); Total Protein 7.4 g/dL (6.6-8.7)
[2020-03-24] MEDS: iohexol 350 mg/mL 100 mL Btl IV (15:28)
[2020-03-24 15:54] VITALS: BP 137/93; PULSE 87; O2SAT 99
[2020-03-24 16:50] VITALS: BP 141/93; PULSE 78; O2SAT 100
--- NOTE | 2020-03-24 16:50 | PC.NURSE ---
22g iv removed from right hand. tip intact. pressure dressing applied
== END 2020-03-24 16:50 | disposition home or self-care (01) ==
PROVIDERS: Emergency Provider Physician Assistant; PCP Family Medicine
DX: R51 Headache (principal)
CPT/HCPCS: 12345; 36415; 70496; 70498; 80053; 85025; 96374; 96375; 99283; J2270; J2405; Q9967

== ENCOUNTER → 2022-10-04 14:23 | Outpatient (BNVA) | payer OTHER, SELFPAY | PROVIDERS: PCP Family Medicine; Visit Provider Clinical Nurse Specialist Adult Health | DX: R50.9 Fever, unspecified (principal); Z20.822 Contact with and (suspected) exposure to COVID-19 | CPT/HCPCS: 87400; 87426 ==

== ENCOUNTER → 2023-03-05 12:54 | Outpatient (BNVA) | payer OTHER, SELFPAY | PROVIDERS: PCP Family Medicine; Visit Provider Family Medicine | DX: E66.9 Obesity, unspecified (principal); F41.9 Anxiety disorder, unspecified; F32.A Depression, unspecified; R41.3 Other amnesia; R73.9 Hyperglycemia, unspecified | CPT/HCPCS: 80053; 80061; 82607; 83036; 84443; 85025 ==

== ENCOUNTER → 2023-09-28 12:11 | Outpatient (BNVA) | payer OTHER, SELFPAY | PROVIDERS: PCP Family Medicine; Visit Provider Nurse Practitioner Family | DX: R68.89 Other general symptoms and signs (principal); J32.9 Chronic sinusitis, unspecified; J32.4 Chronic pansinusitis | CPT/HCPCS: 87426; 87804 ==